=== PATIENT | male | born 1980 | race Caucasian/White ===

== ENCOUNTER 2022-02-11 10:12 | Emergency (ER) | payer BC, OTHER ==
[~2022-02-11] VITALS: Ht 172.7 cm; Wt 86.2 kg
--- NOTE | 2022-02-11 10:26 | ED Abdominal Pain ---
General Chief Complaint: Abdominal/GI Problems Stated Complaint: EPIGASTRIC PAIN History of Present Illness Date Seen by Provider: Feb 11, 2022 Time Seen by Provider: 10:23 Initial Comments 41-year-old male presents with abdominal pain. Patient reports the pain is mildly diffuse but more situated in the epigastric and right upper quadrant. Reports that started around 2 AM this morning as can it comes and goes in "waves" that there is usually just some mild dull pain but then it gets real sharp crampy pain. He denies any nausea, vomiting, constipation or diarrhea. Patient thought that "maybe does have some food poisoning" and thought that maybe he has some diarrhea and feels like it but has not had any bowel movement. He reports that right now he has some mild pain but is not as intense as it been. He denies any cough, fever, chills, sore throat. Patient reports he had a recent trip to [place] has just had some fatigue since then. Allergies and Home Medications Allergies Coded Allergies: No Known Drug Allergies (Unverified , 02/11/22) Patient Home Medication List Home Medication List Reviewed: Yes Review of Systems Review of Systems Constitutional: malaise EENTM: No Symptoms Reported Respiratory: Denies Cough, Denies Shortness of Air Cardiovascular: Denies Chest Pain, Denies Lightheadedness, Denies Palpitations Gastrointestinal: Denies Abdomen Distended; Abdominal Pain; Denies Constipated, Denies Diarrhea, Denies Nausea, Denies Vomiting Genitourinary: Denies Burning, Denies Frequency, Denies Flank Pain Musculoskeletal: no symptoms reported Skin: no symptoms reported Psychiatric/Neurological: No Symptoms Reported Endocrine: No Symptoms Reported Hematologic/Lymphatic: No Symptoms Reported Physical Exam Vital Signs Vital Signs - First Documented 02/11/22 10:16 Temp 36.5 Pulse 60 Resp 15 B/P (MAP) 151/81 (104) O2 Delivery Room Air Capillary Refill : Height/Weight/BMI Height: '" Weight: lbs. oz. kg; BMI Method: General Appearance: WD/WN, no apparent distress HEENT: PERRL/EOMI Neck: full range of motion, supple Respiratory: lungs clear, normal breath sounds Cardiovascular: normal peripheral pulses, regular rate, rhythm Gastrointestinal: soft, tenderness (Diffuse but more pronounced in the epigastric region than the right upper quadrant) Extremities: normal range of motion, non-tender, normal inspection Back: no CVA tenderness Neurologic/Psychiatric: alert, normal mood/affect, oriented x 3 Skin: normal color, warm/dry Progress/Results/Core Measures Results/Orders Lab Results Laboratory Tests Test 02/11/22 10:22 02/11/22 10:45 Range/Units White Blood Count 6.4 4.3-11.0 10^3/uL Red Blood Count 5.46 4.30-5.52 10^6/uL Hemoglobin 15.6 13.3-17.7 g/dL Hematocrit 45 40-54 % Mean Corpuscular Volume 83 80-99 fL Mean Corpuscular Hemoglobin 29 25-34 pg Mean Corpuscular Hemoglobin Concent 34 32-36 g/dL Red Cell Distribution Width 12.2 10.0-14.5 % Platelet Count 192 130-400 10^3/uL Mean Platelet Volume 10.2 9.0-12.2 fL Immature Granulocyte % (Auto) 1 % Neutrophils (%) (Auto) 60 42-75 % Lymphocytes (%) (Auto) 30 12-44 % Monocytes (%) (Auto) 8 0-12 % Eosinophils (%) (Auto) 2 0-10 % Basophils (%) (Auto) 0 0-10 % Neutrophils # (Auto) 3.8 1.8-7.8 10^3/uL Lymphocytes # (Auto) 1.9 1.0-4.0 10^3/uL Monocytes # (Auto) 0.5 0.0-1.0 10^3/uL Eosinophils # (Auto) 0.1 0.0-0.3 10^3/uL Basophils # (Auto) 0.0 0.0-0.1 10^3/uL Immature Granulocyte # (Auto) 0.0 0.0-0.1 10^3/uL Sodium Level 138 135-145 MMOL/L Potassium Level 4.4 3.6-5.0 MMOL/L Chloride Level 104 98-107 MMOL/L Carbon Dioxide Level 24 21-32 MMOL/L Anion Gap 10 5-14 MMOL/L Blood Urea Nitrogen 12 7-18 MG/DL Creatinine 0.81 0.60-1.30 MG/DL Estimat Glomerular Filtration Rate 115 BUN/Creatinine Ratio 15 Glucose Level 95 70-105 MG/DL Calcium Level 9.5 8.5-10.1 MG/DL Corrected Calcium 8.5-10.1 MG/DL Total Bilirubin 0.6 0.1-1.0 MG/DL Aspartate Amino Transf (AST/SGOT) 40 H 5-34 U/L Alanine Aminotransferase (ALT/SGPT) 78 H 0-55 U/L Alkaline Phosphatase 47 40-136 U/L C-Reactive Protein < 0.30 <0.50 MG/DL Total Protein 7.2 6.4-8.2 GM/DL Albumin 4.7 H 3.2-4.5 GM/DL Lipase 260 H 8-78 U/L My Orders Orders - MEYER,LORIE L DO Cbc With Automated Diff (02/11/22 10:21) Comprehensive Metabolic Panel (02/11/22 10:21) Lipase (02/11/22 10:21) Ua Culture If Indicated (02/11/22 10:21) Crp Fs (02/11/22 10:21) Acute Abd Series (02/11/22 10:21) Ed Iv/Invasive Line Start (02/11/22 10:21) Hyoscyamine Sl Tablet (Levsin Sl Tablet) (02/11/22 11:00) Ketorolac Injection (Toradol Injection) (02/11/22 11:00) Us Gallbladder [id number] (02/11/22 11:00) Medications Given in ED Current Medications Medications Dose Ordered Sig/Maureen Route Start Time Stop Time Status Last Admin Dose Admin Hyoscyamine Sulfate 0.125 mg ONCE ONCE SL 02/11/22 11:00 02/11/22 11:02 DC 02/11/22 11:21 0.125 MG Vital Signs/I&O 02/11/22 10:16 Temp 36.5 Pulse 60 Resp 15 B/P (MAP) 151/81 (104) O2 Delivery Room Air Diagnostic Imaging Diagonstic Imaging: Xray Plain Films/CT/US/NM/MRI: abdomen Comments Date of Exam:02/11/22 ACUTE ABD SERIES HISTORY: Right upper quadrant and epigastric abdominal pain. COMPARISON: None. TECHNIQUE: Frontal view of the chest. Upright and supine frontal views of the abdomen. FINDINGS: Lung volumes are normal. No consolidation is seen. There is no pleural effusion or pneumothorax. The cardiac silhouette is normal in size. There are no distended loops of bowel. No large collection of free air is seen. Overall, the stool burden appears low. There are phleboliths in the pelvis. IMPRESSION: 1. No bowel obstruction or large collection of free air. Reviewed: Reviewed by Me, Reviewed/Discussed Departure Impression Primary Impression: Pancreatitis Qualified Codes: K85.90 - Acute pancreatitis without necrosis or infection, unspecified Disposition: HOME, SELF-CARE Condition: Stable Departure-Patient Inst. Referrals: DI BELLO (PCP) Primary Care Physician ELA GUIDO MD (Family) Primary Care Physician Patient Instructions: Acute Pancreatitis, CLEAR LIQUID DIET ADULT/CHILD Add. Discharge Instructions: Clear liquid diet for 24 to 36 hours and advance as tolerated Follow-up with your primary care provider for further evaluation to determine cause of your pancreatitis All discharge instructions reviewed with patient and/or family. Voiced und erstanding. Scripts Hydrocodone/Acetaminophen (Hydrocodone-Acetamin 5-325 mg) 5 Mg-325 Mg Tablet 1 TAB PO Q12H PRN for PAIN-MODERATE (5-7), #5 TAB Prov: LORIE MEYER DO 02/11/22 Hyoscyamine Sulfate (Levsin-Sl) 0.125 Mg Tab.subl 0.125 MG SL Q4H, #10 TAB 0 Refills Prov: LORIE MEYER DO 02/11/22 Work/School Note: Work Release Form Date Seen in the Emergency Department: Feb 11, 2022 Return to Work: Feb 13, 2022 LORIE MEYER DO Feb 11, 2022 10:26
[2022-02-11 10:28] LABS: BASOPHILS % (AUTO) 0 % (0-10); EOSINOPHILS # (AUTO) 0.1 10^3/uL (0.0-0.3); EOSINOPHILS % (AUTO) 2 % (0-10); HEMATOCRIT 45 % (40-54); HEMOGLOBIN 15.6 g/dL (13.3-17.7); LYMPHOCYTES # (AUTO) 1.9 10^3/uL (1.0-4.0); LYMPHOCYTES % (AUTO) 30 % (12-44); MEAN CORPUSCULAR HEMOGLOBIN 29 pg (25-34); MEAN CORPUSCULAR HGB CONC 34 g/dL (32-36); MEAN CORPUSCULAR VOLUME 83 fL (80-99); MEAN PLATELET VOLUME 10.2 fL (9.0-12.2); MONOCYTES # (AUTO) 0.5 10^3/uL (0.0-1.0); MONOCYTES % (AUTO) 8 % (0-12); NEUTROPHILS # (AUTO) 3.8 10^3/uL (1.8-7.8); NEUTROPHILS % (AUTO) 60 % (42-75); PLATELET COUNT 192 10^3/uL (130-400); WHITE BLOOD COUNT 6.4 10^3/uL (4.3-11.0)
[2022-02-11 10:47] LABS: BILIRUBIN,URINE NEGATIVE (NEGATIVE); CLARITY,URINE CLEAR; COLOR,URINE YELLOW; GLUCOSE, URINE (UA) NEGATIVE (NEGATIVE); KETONES,URINE NEGATIVE (NEGATIVE); LEUKOCYTE ESTERASE ,URINE NEGATIVE (NEGATIVE); NITRITE,URINE NEGATIVE (NEGATIVE); PROTEIN,URINE NEGATIVE (NEGATIVE)
[2022-02-11 10:55] LABS: ALANINE AMINOTRANSFERASE 78 U/L (0-55); ALKALINE PHOSPHATASE 47 U/L (40-136); BILIRUBIN,TOTAL 0.6 MG/DL (0.1-1.0); BUN/CREATININE RATIO 15; CALCIUM 9.5 MG/DL (8.5-10.1); CARBON DIOXIDE 24 MMOL/L (21-32); CHLORIDE 104 MMOL/L (98-107); CREATININE SERUM 0.81 MG/DL (0.60-1.30); GFR ESTIMATED 115; GLUCOSE 95 MG/DL (70-105); POTASSIUM 4.4 MMOL/L (3.6-5.0); SODIUM 138 MMOL/L (135-145)
[2022-02-11 10:56] LABS: ALBUMIN 4.7 GM/DL (3.2-4.5); LIPASE 260 U/L (8-78); TOTAL PROTEIN 7.2 GM/DL (6.4-8.2)
[2022-02-11] MEDS ORDERED: KETOROLAC 30 MG/ML VIAL IVP STA (11:00)
[2022-02-11] MEDS ORDERED: HYOSCYAMINE 0.125 MG (LEVSIN) TAB SL ONE (11:00)
--- NOTE | 2022-02-11 11:02 | Diagnostic Imaging Report ---
HISTORY: Right upper quadrant and epigastric abdominal pain. COMPARISON: None. TECHNIQUE: Frontal view of the chest. Upright and supine frontal views of the abdomen. FINDINGS: Lung volumes are normal. No consolidation is seen. There is no pleural effusion or pneumothorax. The cardiac silhouette is normal in size. There are no distended loops of bowel. No large collection of free air is seen. Overall, the stool burden appears low. There are phleboliths in the pelvis. IMPRESSION: 1. No bowel obstruction or large collection of free air. Dictated by: Dictated on workstation # [id number]
--- NOTE | 2022-02-11 11:30 | Diagnostic Imaging Report ---
PROCEDURE: US Gallbladder. TECHNIQUE: Multiple real-time grayscale images were obtained over the right upper quadrant in various projections. INDICATION: Right upper quadrant pain. FINDINGS: The liver is upper limits of normal in size, approximately 17 cm. There is diffuse increased echogenicity throughout the liver consistent with hepatic steatosis. The portal vein is patent and shows normal direction of flow. Gallbladder is without stones or sludge. There is no wall thickening or biliary ductal dilatation. Pancreas is unremarkable. Aorta and IVC are unremarkable. Right kidney is without calculi or hydronephrosis. There is no ascites. IMPRESSION: 1. Hepatic steatosis. 2. No evidence of cholelithiasis or acute cholecystitis. Dictated by: Dictated on workstation # [id number]
[2022-02-11] MEDS ORDERED: HYOS0.1283 SL (11:45)
[2022-02-11] MEDS ORDERED: ACHD5005 PO (11:45)
[2022-02-11 11:54] VITALS: BP 139/76
[2022-02-11 12:35] LABS: BACTERIA,URINE NEGATIVE /HPF; SQUAMOUS EPITHELIAL CELL,UR RARE /HPF; WBC,URINE RARE /HPF
== END 2022-02-11 11:54 | disposition home or self-care (01) ==
LOC: ER FS 10:15
DX: K85.90 Acute pancreatitis without necrosis or infection, unspecified (principal)
CPT/HCPCS: 36415; 74022; 76705; 80053; 81000; 83690; 85025; 86141